=== PATIENT | male | born 1950 | race Caucasian/White ===

== ENCOUNTER 2018-01-26 23:11 | Inpatient (IN) | payer MEDICARE ==
--- NOTE | 2018-01-26 23:45 | ER Document Report ---
ED Medical Screen (RME) - General Chief Complaint: Abdominal pain, Bronchitis Stated Complaint: CHEST CONGESTION, ABDOMINAL PAINS Time Seen by Provider: 01/26/18 23:29 Notes: 67-year-old male with cough times 1 month. Abdominal pain for the past 2 days. States he is unable to sleep due to the pain and cough. TRAVEL OUTSIDE OF THE [place] IN LAST 30 DAYS: No - Related Data Allergies/Adverse Reactions: No Known Allergies Allergy (Unverified 01/26/18 23:16) Physical Exam - Vital signs Vitals: Temp Pulse Resp BP Pulse Ox 97.8 F 97 20 150/93 H 98 01/26/18 23:19 01/26/18 23:19 01/26/18 23:19 01/26/18 23:19 01/26/18 23:19 - Respiratory Respiratory status: No respiratory distress Breath sounds: Normal - Abdominal Inspection: Obese Distension: Distended Tenderness: Tender Course - Vital Signs Vital signs: Temp Pulse Resp BP Pulse Ox 97.8 F 97 20 150/93 H 98 01/26/18 23:19 01/26/18 23:19 01/26/18 23:19 01/26/18 23:19 01/26/18 23:19 - Laboratory Result Diagrams: 01/27/18 00:11 01/27/18 00:11 Laboratory results interpreted by me: 01/27/18 00:11 Glucose 139 H Lipase 6560.8 H
--- NOTE | 2018-01-27 00:17 | RADIOLOGY REPORT (SQ) ---
XR ABDOMEN SUPINE AND ERECT WITH CHEST (ABD ACUTE SERIES) HISTORY: Abdominal pain. COMPARISON: None. FINDINGS: Nonobstructive bowel gas pattern. No air-fluid levels or pneumoperitoneum on the upright view. Lungs are clear without pleural effusions or pneumothorax. AVN of the right femoral head. Prior fixation of the left femoral shaft. IMPRESSION: No evidence of bowel obstruction.
[2018-01-27 00:22] LABS: ABSOLUTE BASOPHILS # (AUTO) 0.1 10^3/uL (0.0-0.2); ABSOLUTE EOSINOPHILS # (AUTO) 0.2 10^3/uL (0.0-0.6); BASOPHILS % (AUTO) 0.6 % (0-2); EOSINOPHILS % (AUTO) 1.5 % (0-6); HEMATOCRIT 43.4 % (37.9-51.0); LYMPHOCYTES % (AUTO) 19.7 % (13-45); MEAN CORPUSCULAR HEMOGLOBIN 31.5 pg (27.0-33.4); MEAN CORPUSCULAR HGB CONC 34.6 g/dL (32.0-36.0); MEAN CORPUSCULAR VOLUME 91 fl (80-97); MONOCYTES % (AUTO) 9.8 % (3-13); PLATELET COUNT 252 10^3/uL (150-450); RED BLOOD COUNT 4.78 10^6/uL (4.35-5.55); RED CELL DISTRIBUTION WIDTH 13.9 % (11.5-14.0); SEGMENTED NEUTROPHILS % (AUTO) 68.4 % (42-78); TOTAL CELLS COUNTED % (AUTO) 100 %; WHITE BLOOD COUNT 10.3 10^3/uL (4.0-10.5)
[2018-01-27 00:43] LABS: ALANINE AMINOTRANSFERASE 36 U/L (21-72); ALBUMIN 4.2 g/dL (3.5-5.0); ALKALINE PHOSPHATASE 105 U/L (38-126); ANION GAP 12 (5-19); ASPARTATE AMINO TRANSFERASE 25 U/L (17-59); BILIRUBIN,DIRECT 0.2 mg/dL (0.0-0.4); BILIRUBIN,TOTAL 0.6 mg/dL (0.2-1.3); BLOOD UREA NITROGEN 11 mg/dL (7-20); CALCIUM 9.7 mg/dL (8.4-10.2); CARBON DIOXIDE 30 mmol/L (22-30); CHLORIDE 100 mmol/L (98-107); GLUCOSE 139 mg/dL (75-110); POTASSIUM 4.4 mmol/L (3.6-5.0); SODIUM 141.8 mmol/L (137-145); TOTAL PROTEIN 6.9 g/dL (6.3-8.2)
[2018-01-27 01:10] LABS: LIPASE 6560.8 U/L (23-300)
--- NOTE | 2018-01-27 01:13 | ER Document Report ---
ED General - General Chief Complaint: Abdominal pain, Bronchitis Stated Complaint: CHEST CONGESTION, ABDOMINAL PAINS Time Seen by Provider: 01/26/18 23:29 Notes: Patient is a 67-year-old male presents with complaint of pain in his abdomen. Patient says that approximately weeks ago he started bronchitis. He was placed on 10 days of medication. He says it was an antibiotic and and possibly steroids. Says he still has some cough but also continues to smoke. Says when he coughs it hurts in left side of his abdomen. Is also noticed that his abdomen is been a little bit distended. He said this is been ongoing for approximately a week. No fevers. No vomiting. No diarrhea. Pain is a very pinpoint location over the left flank area. No pain into the anterior abdomen. Patient says bowel movement have been normal. No blood in his stool. He has had normal urination without any difficulties. TRAVEL OUTSIDE OF THE [place] IN LAST 30 DAYS: No - Related Data Allergies/Adverse Reactions: No Known Allergies Allergy (Unverified 01/26/18 23:16) Past Medical History - Social History Smoking Status: Current Every Day Smoker Frequency of alcohol use: None Drug Abuse: None Family History: Reviewed & Not Pertinent Patient has suicidal ideation: No Patient has homicidal ideation: No - Past Medical History Cardiac Medical History: Reports: Hx Atrial Fibrillation, Hx Hypercholesterolemia, Hx Hypertension Renal/ Medical History: Denies: Hx Peritoneal Dialysis Past Surgical History: Reports: Hx Orthopedic Surgery - LLE Review of Systems - Review of Systems Notes: My Normal Review Basic REVIEW OF SYSTEMS: CONSTITUTIONAL : Denies fever, chills, or sweats. Denies recent illness. EENT: Denies eye, ear, throat, or mouth pain or symptoms. Denies nasal or sinus congestion. CARDIOVASCULAR: Denies chest pain. RESPIRATORY: Current cough GASTROINTESTINAL: Point of left-sided flank pain.. Denies nausea, vomiting, or diarrhea. GENITOURINARY: Denies difficulty urinating, painful urination, burning, frequency, or blood in urine. MUSCULOSKELETAL: Denies neck or back pain or joint pain or swelling. SKIN: Denies rash or skin lesions. NEUROLOGICAL: Denies altered mental status or loss of consciousness. Denies headache. Denies weakness or paralysis or loss of use of either side. Denies problems with gait or speech. Denies sensory or motor loss. ALL OTHER SYSTEMS REVIEWED AND NEGATIVE. Physical Exam - Vital signs Vitals: Temp Pulse Resp BP Pulse Ox 97.8 F 97 20 150/93 H 98 01/26/18 23:19 01/26/18 23:19 01/26/18 23:19 01/26/18 23:19 01/26/18 23:19 - Notes Notes: General Appearance: Well nourished, alert, cooperative, no acute distress, no obvious discomfort. Well-appearing. Vitals: reviewed, See vital signs table. Head: no swelling or tenderness to the head Eyes: PERRL, EOMI, Conjuctiva clear Neck: Supple, no nck swelling Lungs: No wheezing, No rales, No rhonci, No accessory muscle use, good air exchange bilaterally. Heart: Normal rate, Regular rythm, No murmur, no rub Abdomen: Normal BS, soft, No rigidity, Patienthas pain oveer the left upper portion of abdomen and left flank. Abdomen is may be just slightly distended but this appears actually chronic on exam. He does not have any significant gaseous distention. Extremities: good pulses in all extremities, no swelling or tenderness in the extremities, no edema. Skin: warm, dry, appropriate color, no rash Neuro: speech clear, oriented x 3, normal affect, responds appropriately to questions. Course - Re-evaluation Re-evalutation: 01/27/18 01:26 Pain seems to be worsening now. I will order some pain medicine. I have ordered a CT scan to further evaluated possible cause f patient's elevated lipase 01/27/18 02:[address] scan does not show any concerning findings. His triglycerides are normal. Does not drink alcohol. I suspect that his pancreatitis most likely is related to 1 medications he was placed on for his bronchitis based on the timing of the onset of his pain and no other risk factors for pancreatitis. I talked to patient length is agreeable to staying 24 hours to make sure the symptoms improve and his pain becomes under control. I did speak with the hospitalist, Dr. Fortune, who agrees to evaluate the patient. Dictation of this chart was performed using voice recognition software; therefore, there may be some unintended grammatical errors. - Vital Signs Vital signs: Temp Pulse Resp BP Pulse Ox 97.8 F 97 15 141/79 H 95 01/26/18 23:19 01/26/18 23:19 01/27/18 02:01 01/27/18 02:01 01/27/18 02:01 - Laboratory Result Diagrams: 01/27/18 00:11 01/27/18 00:11 Laboratory results interpreted by me: 01/27/18 00:11 Glucose 139 H Lipase 6560.8 H Discharge - Discharge Clinical Impression: Pancreatitis Qualifiers: Chronicity: acute Pancreatitis type: unspecified pancreatitis type Acute pancreatitis complication: no infection or necrosis Qualified Code(s): K85.90 - Acute pancreatitis without necrosis or infection, unspecified Abdominal pain Qualifiers: Abdominal location: left upper quadrant Qualified Code(s): R10.12 - Left upper quadrant pain Condition: Stable Disposition: ADMITTED OBSERVATION Admitting Provider: Hospitalist Unit Admitted: Medical Floor
[2018-01-27] MEDS ORDERED: NORMAL SALINE 1000 ML 1,000 ML IV ONE (01:17)
[2018-01-27] MEDS ORDERED: HYDROMORPHONE HCL INJ/PF 2 MG/ML AMPULE IV ONE (01:17)
[2018-01-27 01:43] LABS: APPEARANCE,URINE CLEAR; BILIRUBIN,URINE NEGATIVE (NEGATIVE); COLOR,URINE YELLOW; GLUCOSE, URINE NEGATIVE (NEGATIVE); KETONES,URINE NEGATIVE (NEGATIVE); LEUKOCYTE ESTERASE,URINE NEGATIVE (NEGATIVE); NITRITE,URINE NEGATIVE (NEGATIVE); PROTEIN,URINE NEGATIVE (NEGATIVE); URINE SPECIFIC GRAVITY 1.019; UROBILINOGEN,URINE NEGATIVE mg/dL (<2.0)
--- NOTE | 2018-01-27 02:02 | RADIOLOGY REPORT (SQ) ---
EXAM DESCRIPTION: CT ABDOMEN PELVIS WITH IV CONTRAST COMPLETED DATE/TME: 01/27/2018 01:17 CLINICAL HISTORY: 67 years, Male, elevated lipase, abdominal pain COMPARISON: None. TECHNIQUE: Contiguous axial CT images of the abdomen and pelvis. Intravenous contrast: Present. Oral contrast: Absent. DLP 2054 mGy-cm. Images stored on PACS. All CT scanners at this facility use dose modulation, iterative reconstruction, and/or weight based dosing when appropriate to reduce radiation dose to as low as reasonably achievable (ALARA). [facility]: Dose Right [facility]: CareDose [facility]: Dose Right [facility]: Teradose 4D [facility]: Smart Technologies LIMITATIONS: None. FINDINGS: Lower chest: Partially imaged. Lung bases: Unremarkable. Cardiac apex: Unremarkable. Solid abdominal viscera: Liver: Hypodense. Gallbladder: Unremarkable. Pancreas: Unremarkable. Spleen: Unremarkable. Adrenal glands: Unremarkable. Right kidney: No hydronephrosis. Left kidney: No hydronephrosis. Urinary bladder: Unremarkable. Abdominal aorta: Atherosclerotic calcifications. Peritoneal: Free fluid: None. Free air: None. Other: No pathologic sized lymph nodes in the upper abdomen. Bowel: Stomach: Unremarkable. Small bowel: Unremarkable. Appendix: Unremarkable. Colon: Unremarkable. Rectum: Unremarkable. Prostate: Unremarkable. Bones: Postsurgical changes to the left femur. Chronic bilateral L5 pars defects with grade 1 anterolisthesis of L5 over S1. IMPRESSION: No acute findings. Fatty liver. TECHNICAL DOCUMENTATION: Quality ID # 436: Final reports with documentation of one or more dose reduction techniques (e.g., Automated exposure control, adjustment of the mA and/or kV according to patient size, use of iterative reconstruction technique) 2010 [employer] All Rights Reserved
[2018-01-27] MEDS ORDERED: ACETAMINOPHEN 325 MG TABLET PO PRN (02:44)
[2018-01-27] MEDS: NORMAL SALINE 1000 ML 1,000 ML IV PRN ×3 (03:00→19:36)
[2018-01-27] MEDS: HYDROMORPHONE HCL INJ/PF 2 MG/ML AMPULE IV PRN (03:00)
[2018-01-27] MEDS: KETOROLAC TROMETHAMINE INJ/PF 30 MG/1 ML SDV IV PRN ×3 (03:31→22:32)
--- NOTE | 2018-01-27 04:35 | PDOC H&P ---
History of Present Illness Admission Date/PCP: 01/27/18 02:47 Patient complains of: Abdominal pain History of Present Illness: JESSICA WELLER is a 67 year old male with a past medical history of atrial fibrillation and dyslipidemia. He presents with 5-7 days of abdominal pain and distention, worse with p.o. intake. Somewhat radiating to the back, alleviated by lying still. Associated with nausea no vomiting. Approximately 10 days ago he was started on an unknown antibiotic for an upper respiratory infection which has subsequently resolved. He denies fever, chest pain, shortness of breath. In the emergency room he is found to have abdominal distention and unremarkable CT abdomen and chemistry with exception to lipase of 6500. He receives IV Dilaudid, IV fluids and referred to the hospitalist for admission. Patient denies previous episode or recent alcohol use. Past Medical History Cardiac Medical History: Reports: Atrial Fibrillation, Hyperlipidema, Hypertension Past Surgical History Past Surgical History: Reports: Orthopedic Surgery - LLE Social History Information Source: Patient, Emergency Med Personnel Smoking Status: Current Every Day Smoker Frequency of Alcohol Use: None Drugs: None - Advance Directive Resuscitation Status: Full Code Family History Family History: Other - Denies GI history Parental Family History Reviewed: Yes Children Family History Reviewed: Yes Sibling(s) Family History Reviewed.: Yes Medication/Allergy Allergies/Adverse Reactions: No Known Allergies Allergy (Unverified 01/26/18 23:16) Review of Systems Constitutional: ABSENT: chills, fever(s), headache(s), weight gain, weight loss Eyes: ABSENT: visual disturbances Ears: ABSENT: hearing changes Cardiovascular: ABSENT: chest pain, dyspnea on exertion, edema, orthropnea, palpitations Respiratory: ABSENT: cough, hemoptysis Gastrointestinal: ABSENT: abdominal pain, constipation, diarrhea, hematemesis, hematochezia, nausea, vomiting Genitourinary: ABSENT: dysuria, hematuria Musculoskeletal: ABSENT: joint swelling Integumentary: ABSENT: rash, wounds Neurological: ABSENT: abnormal gait, abnormal speech, confusion, dizziness, focal weakness, syncope Psychiatric: ABSENT: anxiety, depression, homidical ideation, suicidal ideation Endocrine: ABSENT: cold intolerance, heat intolerance, polydipsia, polyuria Hematologic/Lymphatic: ABSENT: easy bleeding, easy bruising Physical Exam Vital Signs: Temp Pulse Resp BP Pulse Ox 97.8 F 97 15 133/100 H 96 01/26/18 23:19 01/26/18 23:19 01/27/18 04:01 01/27/18 04:01 01/27/18 04:01 General appearance: PRESENT: mild distress, obese, well-developed, well- nourished Head exam: PRESENT: atraumatic, normocephalic Eye exam: PRESENT: conjunctiva pink, EOMI, PERRLA. ABSENT: scleral icterus Ear exam: PRESENT: normal external ear exam Mouth exam: PRESENT: moist, tongue midline Neck exam: ABSENT: carotid bruit, JVD, lymphadenopathy, thyromegaly Respiratory exam: PRESENT: clear to auscultation kalyan. ABSENT: rales, rhonchi, wheezes Cardiovascular exam: PRESENT: RRR. ABSENT: diastolic murmur, rubs, systolic murmur Pulses: PRESENT: normal dorsalis pedis pul Vascular exam: PRESENT: normal capillary refill GI/Abdominal exam: PRESENT: distended, hypoactive bowel sounds, normal bowel sounds, soft, tenderness. ABSENT: ascites, guarding, mass, organolmegaly, rebound Rectal exam: PRESENT: deferred Extremities exam: PRESENT: full ROM. ABSENT: calf tenderness, clubbing, pedal edema Neurological exam: PRESENT: alert, awake, oriented to person, oriented to place , oriented to time, oriented to situation, CN II-XII grossly intact. ABSENT: motor sensory deficit Psychiatric exam: PRESENT: appropriate affect, normal mood. ABSENT: homicidal ideation, suicidal ideation Skin exam: PRESENT: dry, intact, warm. ABSENT: cyanosis, rash Results Impressions: Acute Abdomen Series 01/26/18 23:43 IMPRESSION: No evidence of bowel obstruction. Abdomen/Pelvis CT 01/27/18 01:17 IMPRESSION: No acute findings. Fatty liver. TECHNICAL DOCUMENTATION: Quality ID # 436: Final reports with documentation of one or more dose reduction techniques (e.g., Automated exposure control, adjustment of the mA and/or kV according to patient size, use of iterative reconstruction technique) 2010 [employer]- All Rights Reserved Assessment & Plan - Diagnosis (1) Pancreatitis Qualifiers: Chronicity: acute Pancreatitis type: unspecified pancreatitis type Acute pancreatitis complication: no infection or necrosis Qualified Code(s): K85.90 - Acute pancreatitis without necrosis or infection, unspecified Is this a current diagnosis for this admission?: Yes Plan: Viral versus triglyceride versus antibiotic versus surreptitious alcohol. Med floor observation, bowel rest, IV fluids and symptomatic management. Follow-up chemistry, advance diet as tolerated. (2) Abdominal pain Qualifiers: Abdominal location: left upper quadrant Qualified Code(s): R10.12 - Left upper quadrant pain Is this a current diagnosis for this admission?: Yes Plan: Secondary to #1, optimize nonsteroidal anti-inflammatory over narcotic. - Time Time Spent: 30 to 50 Minutes
[2018-01-27] MEDS: HEPARIN SOD (PORCINE) 5,000 UNIT/ML 1 ML SYRINGE SUBCUT SCH ×3 (06:49→22:33)
--- NOTE | 2018-01-27 09:03 | Physician Advisory Note ---
Physician Advisor ProgressNote .: Pursuant to the plan for [facility], I have reviewed the medical record for this patient. Physician Advisor Statement: Please consider documenting, if you agree: 1. "fatty liver, may be due to " 2. "Pt not safe for d/c this PM due to " [persistent/recurrent tachy? persistent nausea w/inability to take in adequate po? persistent acute abd pain ? needing frequent prn IV opioid? ...] Status: Medicare pt, began eval just before MN ([facility]AS), persistently tachycardic despite IVF & prn pain meds so far, .... Appropriate to change to Inpatient status later today w/documentation of reasons he is not yet safe to go home yet. Thanks! CK Addendum 01/28 @12:23AM: Pt still having abd pain & tenderness per PM nursing note. Still not able to be advanced in diet at all (NPO). Approp for Inpt status, just needs medical necessity docum as above.
[2018-01-28 05:10] LABS: ABSOLUTE EOSINOPHILS # (AUTO) 0.2 10^3/uL (0.0-0.6); ABSOLUTE LYMPHOCYTES (AUTO) 1.7 10^3/uL (0.5-4.7); ABSOLUTE MONOCYTES (AUTO) 0.6 10^3/uL (0.1-1.4); ABSOLUTE NEUT (AUTO) 5.3 10^3/uL (1.7-8.2); BASOPHILS % (AUTO) 0.6 % (0-2); EOSINOPHILS % (AUTO) 1.9 % (0-6); HEMATOCRIT 37.5 % (37.9-51.0); MEAN CORPUSCULAR HEMOGLOBIN 31.2 pg (27.0-33.4); MEAN CORPUSCULAR HGB CONC 34.5 g/dL (32.0-36.0); MEAN CORPUSCULAR VOLUME 91 fl (80-97); MONOCYTES % (AUTO) 8.3 % (3-13); PLATELET COUNT 197 10^3/uL (150-450); RED BLOOD COUNT 4.14 10^6/uL (4.35-5.55); RED CELL DISTRIBUTION WIDTH 13.9 % (11.5-14.0); SEGMENTED NEUTROPHILS % (AUTO) 67.2 % (42-78); TOTAL CELLS COUNTED % (AUTO) 100 %; WHITE BLOOD COUNT 7.8 10^3/uL (4.0-10.5)
[2018-01-28 05:17] LABS: HEMOGLOBIN 12.9 g/dL (13.5-17.0)
[2018-01-28 05:24] LABS: ALANINE AMINOTRANSFERASE 30 U/L (21-72); ALBUMIN 3.2 g/dL (3.5-5.0); ALKALINE PHOSPHATASE 82 U/L (38-126); ANION GAP 7 (5-19); ASPARTATE AMINO TRANSFERASE 26 U/L (17-59); BILIRUBIN,DIRECT 0.1 mg/dL (0.0-0.4); BILIRUBIN,TOTAL 0.8 mg/dL (0.2-1.3); BLOOD UREA NITROGEN 12 mg/dL (7-20); CALCIUM 8.6 mg/dL (8.4-10.2); CARBON DIOXIDE 28 mmol/L (22-30); CHLORIDE 107 mmol/L (98-107); GLUCOSE 106 mg/dL (75-110); POTASSIUM 4.8 mmol/L (3.6-5.0); SODIUM 142.2 mmol/L (137-145); TOTAL PROTEIN 5.6 g/dL (6.3-8.2)
[2018-01-28] MEDS: HEPARIN SOD (PORCINE) 5,000 UNIT/ML 1 ML SYRINGE SUBCUT SCH (05:53)
--- NOTE | 2018-01-28 11:29 | PDOC PROGRESS REPORT ---
Subjective Progress Note for:: 01/28/18 Subjective:: Patient's lipase now 1500. No abdominal complaints. Heart rate is irregular as he has chronic atrial fibrillation. He is on long-term anticoagulation which was not initiated at the time of admission. He has no new complaints and has decided not to sign out AMA Reason For Visit: ACUTE PANCREATITIS Physical Exam Vital Signs: Temp Pulse Resp BP Pulse Ox 97.9 F 105 H 18 141/88 H 99 01/28/18 07:25 01/28/18 07:25 01/28/18 07:25 01/28/18 07:25 01/28/18 07:25 Intake & Output 01/27/18 01/28/18 01/29/18 06:59 06:59 06:59 Intake Total 1000 3240 Output Total 100 Balance 1000 3140 Weight 112.9 kg 114.2 kg General appearance: PRESENT: no acute distress, well-developed, well-nourished Eye exam: PRESENT: conjunctiva pink, EOMI, PERRLA. ABSENT: scleral icterus Neck exam: ABSENT: carotid bruit, JVD, lymphadenopathy, thyromegaly Respiratory exam: PRESENT: clear to auscultation kalyan. ABSENT: rales, rhonchi, wheezes Cardiovascular exam: PRESENT: irregular rhythm. ABSENT: diastolic murmur, rubs , systolic murmur Pulses: PRESENT: normal dorsalis pedis pul, +1 pedal pulses bilateral GI/Abdominal exam: PRESENT: normal bowel sounds, soft. ABSENT: distended, guarding, mass, organolmegaly, rebound, tenderness Extremities exam: PRESENT: full ROM. ABSENT: calf tenderness, clubbing, pedal edema Results Laboratory Results: 01/28/18 04:00 01/28/18 04:00 01/28/18 01/28/18 04:00 04:00 WBC 7.8 RBC 4.14 L Hgb 12.9 L D Hct 37.5 L MCV 91 MCH 31.2 MCHC 34.5 RDW 13.9 Plt Count 197 Seg Neutrophils % 67.2 Lymphocytes % 22.0 Monocytes % 8.3 Eosinophils % 1.9 Basophils % 0.6 Absolute Neutrophils 5.3 Absolute Lymphocytes 1.7 Absolute Monocytes 0.6 Absolute Eosinophils 0.2 Absolute Basophils 0.0 Sodium 142.2 Potassium 4.8 Chloride 107 Carbon Dioxide 28 Anion Gap 7 BUN 12 Creatinine 0.74 Est GFR ( Amer) > 60 Est GFR (Non-Af Amer) > 60 Glucose 106 Calcium 8.6 Total Bilirubin 0.8 AST 26 ALT 30 Alkaline Phosphatase 82 Total Protein 5.6 L Albumin 3.2 L Lipase 1453.0 H Impressions: Acute Abdomen Series 01/26/18 23:43 IMPRESSION: No evidence of bowel obstruction. Abdomen/Pelvis CT 01/27/18 01:17 IMPRESSION: No acute findings. Fatty liver. TECHNICAL DOCUMENTATION: Quality ID # 436: Final reports with documentation of one or more dose reduction techniques (e.g., Automated exposure control, adjustment of the mA and/or kV according to patient size, use of iterative reconstruction technique) 2010 [employer]- All Rights Reserved Assessment & Plan - Diagnosis (1) Chronic atrial fibrillation Is this a current diagnosis for this admission?: Yes Plan: Reasonable rate control. Patient has been off his beta-elton for 24 hours we will restart monitor. Resume Eliquis (2) Hypertension Is this a current diagnosis for this admission?: Yes Plan: Resume metoprolol monitor blood pressure going forward (3) Hypothyroidism Is this a current diagnosis for this admission?: Yes Plan: TSH resume levothyroxine (4) Pancreatitis Qualifiers: Chronicity: acute Pancreatitis type: unspecified pancreatitis type Acute pancreatitis complication: no infection or necrosis Qualified Code(s): K85.90 - Acute pancreatitis without necrosis or infection, unspecified Is this a current diagnosis for this admission?: Yes Plan: Lipase now 1500. Begin clear liquids for lunch advance to full liquids for dinner check lipase in a.m. if dropping further will discharge patient - Time Time Spent with patient: 25-34 minutes Anticipated discharge: Home Within: within 24 hours
[2018-01-28] MEDS ORDERED: ESCITALOPRAM OXALATE 10 MG TABLET PO SCH (12:00)
[2018-01-28] MEDS ORDERED: METOPROLOL SUCCINATE 50 MG TAB.SR.24H PO SCH (12:00)
[2018-01-28] MEDS: LEVOTHYROXINE SODIUM 0.15 MG TABLET PO SCH (12:15)
[2018-01-28] MEDS ORDERED: APIXABAN 5 MG TABLET PO SCH (18:00)
[2018-01-28] MEDS: HYDROMORPHONE HCL INJ/PF 2 MG/ML AMPULE IV PRN (22:07)
[2018-01-28] MEDS: KETOROLAC TROMETHAMINE INJ/PF 30 MG/1 ML SDV IV PRN (22:08)
[2018-01-29] MEDS: LEVOTHYROXINE SODIUM 0.15 MG TABLET PO SCH (05:04)
--- NOTE | 2018-01-29 08:18 | EKG REPORT ---
SEVERITY:- ABNORMAL ECG - ATRIAL FIBRILLATION, V-RATE 76-96 MULTIFORM VENTRICULAR PREMATURE COMPLEXES RIGHT AXIS DEVIATION LOW VOLTAGE IN FRONTAL LEADS : Confirmed by: Katherin Mccollum MD 29-Jan-2018 08:17:33
[2018-01-29 08:36] VITALS: BP 128/77
--- NOTE | 2018-01-29 08:58 | PDOC DISCHARGE SUMMARY ---
General - Admit/Disc Date/PCP Admission Date/Primary Care Provider: 01/28/18 12:48 Discharge Date: 01/29/18 - Discharge Diagnosis (1) Chronic atrial fibrillation Is this a current diagnosis for this admission?: Yes (2) Hypertension Is this a current diagnosis for this admission?: Yes (3) Hypothyroidism Is this a current diagnosis for this admission?: Yes (4) Pancreatitis Is this a current diagnosis for this admission?: Yes - Additional Information Resuscitation Status: Full Code Discharge Diet: As Tolerated, Cardiac, Other (Comments) Discharge Activity: Activity As Tolerated Home Medications: Apixaban [Eliquis] 5 mg PO BID 01/27/18 Atorvastatin Calcium 20 mg PO DAILY 01/27/18 Escitalopram Oxalate 10 mg PO DAILY 01/27/18 Furosemide [Lasix 40 mg Tablet] 40 mg PO DAILY 01/27/18 Levothyroxine Sodium [Synthroid 0.15 mg Tablet] 0.075 mg PO HOLGUIN 01/27/18 Levothyroxine Sodium [Synthroid 0.15 mg Tablet] 0.15 mg PO MOTUWETHFRSA Metoprolol Succinate 200 mg PO DAILY 01/27/18 Acetaminophen [Tylenol 325 mg Tablet] 650 mg PO Q6HP PRN tablet 01/29/18 History of Present Illness Patient complains of: Abdominal pain History of Present Illness: JESSICA WELLER is a 67 year old male with a past medical history of atrial fibrillation and dyslipidemia. He presents with 5-7 days of abdominal pain and distention, worse with p.o. intake. Somewhat radiating to the back, alleviated by lying still. Associated with nausea no vomiting. Approximately 10 days ago he was started on an unknown antibiotic for an upper respiratory infection which has subsequently resolved. He denies fever, chest pain, shortness of breath. In the emergency room he is found to have abdominal distention and unremarkable CT abdomen and chemistry with exception to lipase of 6500. Hospital Course Hospital Course: She was admitted to the medical floor. He was made n.p.o. following days lipase was 1600 he was initiated on full liquids and tolerated it well the following morning his lipase was 700 he had minimal abdominal pain he was ready for discharge. Patient has chronic atrial fibrillation his heart rate varies between 90 and 110 which is reasonable control he is on long-term anticoagulation with Eliquis. He was discharged on his routine medications without change. CT of the abdomen showed no significant inflammatory changes . Physical Exam Vital Signs: Temp Pulse Resp BP Pulse Ox 97.4 F 68 16 128/77 H 100 01/29/18 08:20 01/29/18 08:20 01/29/18 08:20 01/29/18 08:20 01/29/18 08:20 Intake & Output 01/28/18 01/29/18 01/30/18 06:59 06:59 06:59 Intake Total 355 Balance 355 Weight 114.5 kg General appearance: PRESENT: no acute distress, well-developed, well-nourished Eye exam: PRESENT: conjunctiva pink, EOMI, PERRLA. ABSENT: scleral icterus Neck exam: ABSENT: carotid bruit, JVD, lymphadenopathy, thyromegaly Respiratory exam: PRESENT: clear to auscultation kalyan. ABSENT: rales, rhonchi, wheezes Cardiovascular exam: PRESENT: RRR. ABSENT: diastolic murmur, rubs, systolic murmur GI/Abdominal exam: PRESENT: normal bowel sounds, soft, tenderness - Normal mid to the left epigastric pain on deep palpation. ABSENT: distended, guarding, mass, organolmegaly, rebound Extremities exam: PRESENT: full ROM. ABSENT: calf tenderness, clubbing, pedal edema Results Laboratory Results: 01/29/18 04:03 Lipase 764.9 H Impressions: Acute Abdomen Series 01/26/18 23:43 IMPRESSION: No evidence of bowel obstruction. Abdomen/Pelvis CT 01/27/18 01:17 IMPRESSION: No acute findings. Fatty liver. TECHNICAL DOCUMENTATION: Quality ID # 436: Final reports with documentation of one or more dose reduction techniques (e.g., Automated exposure control, adjustment of the mA and/or kV according to patient size, use of iterative reconstruction technique) 2010 [employer]- All Rights Reserved Qualifiers - * PATIENT BEING DISCHARGED WITH ANY OF THE FOLLOWING DIAGNOSIS: No Plan Time Spent: Greater than 30 Minutes
[2018-01-29] MEDS ORDERED: FUROSEMIDE 40 MG TABLET PO SCH (10:00)
[2018-01-29] MEDS ORDERED: ATORVASTATIN CALCIUM 20 MG TABLET PO SCH (10:00)
[2018-01-29] MEDS ORDERED: METOPROLOL SUCCINATE 200 MG PO SCH (10:00)
== END 2018-01-29 08:45 | disposition home or self-care (01) | DRG 440 ==
LOC: ER 23:11 → EH 01-27 02:47 → 3N 01-27 05:51 → OBSVTOIN 01-28 12:48
PROVIDERS: ADMIT Internal Medicine; ATTEND Internal Medicine
DX: K85.90 Acute pancreatitis without necrosis or infection, unspecified (principal); E03.9 Hypothyroidism, unspecified; I48.91 Unspecified atrial fibrillation; E78.5 Hyperlipidemia, unspecified; I10 Essential (primary) hypertension; F17.200 Nicotine dependence, unspecified, uncomplicated; Z79.02 Long term (current) use of antithrombotics/antiplatelets
CPT/HCPCS: 36415; 74022; 74177; 80053; 81001; 83690; 84443; 84478; 85025; 93005; 93010; 96361; 96374; 99285; G0378; J1170; J1885; J7030